=== PATIENT | male | born 1930 | race Caucasian/White ===

== ENCOUNTER 2016-11-23 09:40 | Day surgery (SDC) | payer MEDICARE, OTHER ==
[~2016-11-23] VITALS: Ht 167.6 cm; Wt 74.8 kg
[~2016-11-23 09:40] MED LIST: AMLO10TA3 PO; ASCO500C6 PO; LEVO112T4 PO; LIP40 PO; Lactated Ringer's 1,000 ML IV ONE; POTA99TA18 PO
[2016-11-23] MEDS ORDERED: MetoCLOpramide 5 mg/mL 2 mL Inj ONE (09:41)
[2016-11-23] MEDS ORDERED: Atropine 0.4 mg/mL 5 mL Inj ONE (09:41)
[2016-11-23] MEDS ORDERED: MeTOProlol 1 mg/mL 5 mL Inj ONE (09:41)
[2016-11-23] MEDS ORDERED: Glycopyrrolate 0.2 mg/mL 5 mL Inj ONE (09:41)
[2016-11-23] MEDS ORDERED: Propofol 10,000 mCg/mL 20 mL Inj ONE (09:41)
[2016-11-23] MEDS ORDERED: hydrALAZINE 20 mg/mL Inj ONE (09:41)
[2016-11-23] MEDS ORDERED: TAMS0.4C98 PO (11:16)
[2016-11-23 11:30] VITALS: BP 175/85; PULSE 60; RESP 16; O2SAT 98
[2016-11-23] MEDS ORDERED: Lactated Ringer's 1,000 ML IV SCH (12:24)
[2016-11-23] MEDS ORDERED: Ondansetron 2 mg/mL 2 mL Inj IVPUSH PRN (12:25)
[2016-11-23] MEDS ORDERED: MetoCLOpramide 5 mg/mL 2 mL Inj IVPUSH PRN (12:25)
[2016-11-23 13:01] VITALS: BP 110/54; PULSE 60; RESP 16; O2SAT 97
--- NOTE | 2016-11-23 13:02 | PCM.ENDCOL ---
Colonoscopy Date of Service: Nov 23, 2016 Physician Doug Smith MD Pre Procedure Diagnosis: Change in bowel patterns. Constipation worsening. Post Procedure Dx & Findings: Polyps hemorrhoids diverticuli Procedure Colonoscopy Prep adequate withdrawal 14 minutes PROCEDURE IN DETAIL: After unremarkable rectal examination with this videocolonoscope was inserted into patient's anal canal was advanced to cecum. Landmarks are identified including the ileocecal valve and appendiceal orifice. Scope was withdrawn systematically. In the ascending colon there were two 3-4 mm polyps which were removed completely using cold snare. In the transverse colon, there was a 3 mm polyp which was removed completely using cold snare. Persistent oozing of blood noted. One hemostatic clip deployed and oozing stop. In the sigmoid colon, there were several medium sized diverticuli. In the rectum retroflexion was done which showed hemorrhoids and a canal was inspected carefully on the way out and hemorrhoids noted. The mucosa of the cecum, ascending, transverse, descending, sigmoid, rectal mucosa lined with whitish, pink, smooth, glistening, normal-appearing mucosa, normal fine branching, underlying vascularity, normal haustra. The patient tolerated procedure and was transported to observation area. Impression Polyps 3 status post complete removal Hemorrhoids Diverticuli Recommendation Repeat colonoscopy 3 years Diverticular diet Presedation Assessment Risks and Benefits Informed consent was obtained from the patient after all risks and benefits including but not limited to drug reaction, infection, pain, bleeding, perforation, as well as alternatives were discussed. Patient monitoring Continuous pulse oximetry, cardiac monitoring, blood pressure monitoring, IV access, and oxygen at 2L per nasal cannula. Complications There were no periprocedural complications identified. Post Procedure Plan Post Procedure Recommendations 1. Restrict activities today. 2. Resume normal activities in the morning. 3. Resume medications. 4. Patient informed of normal post procedure side effects as bloating, drowsiness, blood streaking in the stool. 5. average risk CRCS. If colon polyps come back as: -Hyperplastic- can repeat colonoscopy in 10 years -Tubular adenoma- repeat colonoscopy in 5 years -Tubulovillous/villous adenoma- repeat colonoscopy in 3 years -If any dysplasia- return to clinic as soon as possible 6. Please don't hesitate to call me with any questions. Doug Smith MD Nov 23, 2016 13:02
[2016-11-23 13:13] VITALS: BP 133/65; PULSE 60; RESP 16; O2SAT 97
[2016-11-23 13:23] VITALS: BP 124/62; PULSE 60; RESP 16; O2SAT 98
--- NOTE | 2016-11-23 14:03 | PCM.ANEP2 ---
Post Anesthesia Evaluation ASA/CMS Post Anesthesia VS in Patient's Normal Range?: Yes Resp Stable; Airway Patent?: Yes CV Function & Hydration Stable: Yes Mental Status Recovered?: Yes Pain control Satisfactory?: Yes N/V Control Satisfactory?: Yes Frank Marquez MD Nov 23, 2016 14:03
--- NOTE | 2016-11-23 14:03 | PCM.HPANE ---
Patient Data Surgeon Admitting Provider: Attending Provider:Doug Smith MD Primary Care Physician:Michael Velazquez MD Other Provider:[facility] Reason for Visit Constipation Ht/WT & BMI Height (Feet): 5 Height (Inches): 6 Weight (Kilograms): 74.8 Body Mass Index 26.00 Allergies Coded Allergies: quinine (Verified Allergy, Unknown, 11/20/16) Past Anesthesia History Anesthesia History: Denies:: Abnormal Airway, Anesthesia Reactions, Difficult Intubation, Fam Anesthesia Reaction, Fam Malignant Hypertherm, Malignant Hyperthermia Diabetes History Hx Diabetes?: No MRSA MRSA: No Medications Reported Medications Tamsulosin (Flomax)0.4 Mg Capsule0.4 Mg PO DAILY Ref 0 11/23/16 Ascorbic Acid (Vitamin C)500 Mg Capsule.er500 Mg PO DAILY 11/20/16 Potassium Gluconate 99 Mg Tablet.er99 Mg PO DAILY 11/20/16 Levothyroxine 112 Mcg [id number] Mcg PO DAILY For Thyroid Replacement Ref 0 11/20/16 Atorvastatin (Lipitor)40 Mg [id number] Mg PO DAILY Ref 0 11/20/16 Amlodipine 10 Mg [id number] Mg PO DAILY Ref 0 11/20/16 History HEENT History: Denies:: Abnormal Airway Difficult Intubation Teeth Condition: Missing Teeth Cardiovascular History: Positive for:: Hypertension Pacemaker (PLACED MARCH 2015?) Hx of Respiratory Problem?: No Neurological History: Denies:: CVA Hx Surgeries?: Yes (ING HERNIA, FX L FEMUR, T&A, CATARACTS, APPY) Hx Any Other Health Problems?: No Hx Diabetes: No Hx Alcohol Use: Yes (2-3 / NIGHT ) Stop/Bang Treated for Sleep Apnea?: No S-Snoring: Do You Snore Loudly: No T-Tired: feel tired, fatigued: No O-Obsered: Observed not breath: No P-Blood Pressure: treated: Yes B- Body Mass Index > 35 kg/m2: No A- Age over 50: Yes N- Neck Large Circumference: No G- Gender Male: Yes MARAL Total Score: 3 Risk Assessment Category Category 1A: Patient has history of documented sleep apnea, and HAS NOT received any narcotic, sedative or anesthesia administration during this stay. Category 1B: Patient has history of documented sleep apnea, and HAS received any narcotic , sedative or anesthesia administration during this stay Category 2: Patient has SUSPECTED Obstructive Sleep Apnea, and HAS received any narcotic , sedative or anesthesia administration during this stay. Category 3: Patient has SUSPECTED Obstructive Sleep Apnea and HAS NOT received narcotic, sedative or anesthesia administration during this stay. Category 4: Outpatient in Procedural Areas with known sleep apnea or who screen positive for High Risk via the STOP/BANG questionnaire. Exam Exam Vital Signs Vital Signs Date Time Temp Pulse Resp B/P Pulse Ox O2 Delivery O2 Flow Rate FiO2 11/23/16 11:30 36.5 60 16 175/85 98 Room Air General Appearance: Alert, Oriented X3, Cooperative, No Acute Distress HEENT/AIRWAY: MP 2, Neck Movement (FROM), Mouth Opening (3 FBMO) Lungs: Normal Air Movement Heart: Regular Rate/Rhythm Plan Impression Patient chart reviewed, patient interviewed and anesthestic plan with risks, benefits, and alternatives discussed, and informed consent obtained. NPO Status: > 8hrs ASA Physical Status: ASA3 Severe Disease (pacemaker) Anesthetic Plan: GA, MAC Bene/Risks/Altern/Consents: Yes HP Complete Prior to Induction: Yes Frank Marquez MD Nov 23, 2016 12:24
--- NOTE | 2016-11-23 14:03 | PCM.ANEP1 ---
Post Anesthesia Phase 1 PACU Phase 1 Assessment Date of Service: Nov 23, 2016 Vital Signs Vital Signs Date Time Temp Pulse Resp B/P Pulse Ox O2 Delivery O2 Flow Rate FiO2 11/23/16 13:23 60 16 124/62 98 Room Air 11/23/16 13:13 60 16 133/65 97 Room Air 11/23/16 13:01 36.6 60 16 110/54 97 Room Air 11/23/16 11:30 36.5 60 16 175/85 98 Room Air Anesthetic Administered: GA Level of Alertness: Awake, talking CRUM's with Equal Strength: Yes Pain: No Nausea or Vomiting: No Oxygen Delivery: Room Air Lungs: Normal Air Movement Dermatome Level: Full Sensation Frank Marquez MD Nov 23, 2016 14:03
--- NOTE | 2016-11-24 14:33 | PATH ---
SURGICAL PATHOLOGY Attending Physician:Doug Smith M.D. CASE STATUS: Signed Out PATIENT NAME: JAMES RAHMAN PID: [id number] : 1930 DATE COLLECTED:11/23/2016 20:05 SPECIMEN: 1: Colon, Biopsy 2: Colon, Biopsy CLINICAL HISTORY: CONSTIPATION 1). ASCENDING COLON POLYPS X2 2). TRANSVERSE COLON POLYP FINAL DIAGNOSIS: 1.ASCENDING COLON POLYPS: TUBULAR ADENOMAS. 2.TRANSVERSE COLON POLYP: TUBULAR ADENOMA. ICD10 CODE D12.3 D12.4 GROSS DESCRIPTION: Received are two formalin-filled containers, both labeled with the patient' s name: 1. Received in formalin, labeled with the patient' s name and "ascending colon polyps", are three fragments of phillips, soft tissue ranging in size from 0.1 x 0.1 x 0.1 cm to 0.2 x 0.1 x 0.1 cm. All fragments are totally submitted in cassette 1A. 2. Received in formalin, labeled with the patient' s name and "transverse colon polyp", are two fragments of phillips, soft tissue ranging in size from 0.1 x 0.1 x 0.1 cm to 0.2 x 0.1 x 0.1 cm. All fragments are totally submitted in cassette 2A. ([id number]) MICRO DESCRIPTION: See diagnosis. ICD-9 CODES: CPT CODES: 1: 59232 2: 30235 Electronically Signed Out Monse Babb MD [facility] Pathology [facility] [address], [place] [address] Technical component performed at [facility], [facility] [address], [place], [address]
== END 2016-11-23 23:59 | disposition home or self-care (01) ==
LOC: END 09:40
PROVIDERS: ATTEND Internal Medicine
DX: D12.2 Benign neoplasm of ascending colon (principal); D12.3 Benign neoplasm of transverse colon; K57.30 Diverticulosis of large intestine without perforation or abscess without bleeding; K64.9 Unspecified hemorrhoids; K59.00 Constipation, unspecified; I10 Essential (primary) hypertension; Z95.0 Presence of cardiac pacemaker
CPT/HCPCS: 45385; J0360; J0461; J2765; J7120